=== PATIENT | female | born 1990 | race Two or more races ===

== ENCOUNTER 2016-12-17 10:55 | Observation (INO) | payer OTHER ==
[~2016-12-17] VITALS: Ht 160 cm; Wt 74.8 kg
[2016-12-17 11:17] VITALS: BP 108/72
[2016-12-18] MEDS ORDERED: PREN-546 PO (12:07)
[2016-12-18] MEDS ORDERED: FERR-252 PO (12:07)
== END 2016-12-17 16:10 | disposition home or self-care (01) ==
LOC: EDBD 10:55 → MLD 10:55
PROVIDERS: ADMIT Obstetrics & Gynecology; ATTEND Obstetrics & Gynecology
DX: O36.8130 Decreased fetal movements, third trimester, not applicable or unspecified (principal); Z3A.38 38 weeks gestation of pregnancy
CPT/HCPCS: 76819; G0378; Q0092

== ENCOUNTER 2016-12-18 10:50 | Inpatient (IN) | payer OTHER ==
[~2016-12-18] VITALS: Ht 160 cm; Wt 74.8 kg
[2016-12-18 11:30] VITALS: BP 128/80
[2016-12-18] MEDS ORDERED: LACTATED RINGERS 1,000 ML IV SCH (11:40)
[2016-12-18] MEDS ORDERED: OXYTOCIN 20 UNITS in LACTATED RINGERS 1,000 ML IV SCH (11:40)
[2016-12-18] MEDS ORDERED: PROMETHAZINE 25 MG/ML VIAL IVP PRN (11:40)
[2016-12-18] MEDS ORDERED: CARBOPROST 250 MCG/ML AMP IM PRN (11:40)
[2016-12-18] MEDS ORDERED: LIDOCAINE 1% 500 MG/50 ML VIAL INJ SCH (11:40)
[2016-12-18] MEDS ORDERED: IBUPROFEN 800 MG TAB PO PRN (11:40)
[2016-12-18] MEDS ORDERED: NALBUPHINE 10 MG/ML AMP IVP PRN (11:40)
[2016-12-18] MEDS ORDERED: METHYLERGONOVINE 0.2 MG/ML AMP IM PRN ×2 (11:40→14:55)
[2016-12-18] MEDS ORDERED: OXYTOCIN 10 UNITS/ML VIAL IM SCH (11:40)
[2016-12-18] MEDS ORDERED: PREN-546 PO (12:07)
[2016-12-18] MEDS ORDERED: FERR-252 PO (12:07)
[2016-12-18] MEDS: LACTATED RINGERS 1,000 ML IV SCH ×2 (12:08→12:28)
[2016-12-18 12:32] LABS: BASOPHILS # (AUTO) 0.1 K/uL (0.00-0.22); BASOPHILS % (AUTO) 1.4 % (0.0-2.0); EOSINOPHILS % (AUTO) 0.5 % (0.0-4.0); HEMATOCRIT 32.8 % (36-48); HEMOGLOBIN 10.8 g/dL (12.0-16.0); LYMPHOCYTES # (AUTO) 2.4 K/uL (2.5-16.5); LYMPHOCYTES % (AUTO) 24.2 % (20.5-51.1); MEAN CORPUSCULAR HEMOGLOBIN 32 pg (27-31); MEAN CORPUSCULAR HGB CONC 33 g/dL (33-37); MEAN CORPUSCULAR VOLUME 97 fL (80-94); MONOCYTES # (AUTO) 0.5 K/uL (0.8-1.0); MONOCYTES % (AUTO) 5.4 % (1.7-9.3); NEUTROPHILS # (AUTO) 6.9 K/uL (1.8-7.7); NEUTROPHILS % (AUTO) 68.5 % (42.2-75.2); PLATELET COUNT (AUTO) 189 K/uL (140-450); RED CELL DISTRIBUTION WIDTH 13.6 % (11.6-13.7); WHITE BLOOD COUNT (AUTO) 9.9 K/uL (4.8-10.8)
[2016-12-18] MEDS ORDERED: LIDOCAINE 1% 0 ML ONE (12:42)
[2016-12-18] MEDS ORDERED: OXYTOCIN 10 UNITS/ML VIAL ONE (12:42)
[2016-12-18 13:17] LABS: APPEARANCE,URINE CLEAR (CLEAR); BILIRUBIN,URINE NEGATIVE (NEGATIVE); BLOOD, URINE NEGATIVE (NEGATIVE); COLOR,URINE YELLOW (YELLOW); LEUKOCYTE ESTERASE ,URINE TRACE (NEGATIVE); NITRITE, URINE NEGATIVE (NEGATIVE); PH,URINE 6.5 (5.0-9.0); UGLUCOSE NEGATIVE (NEGATIVE)
[2016-12-18] MEDS ORDERED: OXYTOCIN 20 UNITS/LR PREMIX 1,000 ML IV ONE (13:18)
[2016-12-18 13:27] LABS: RBC,URINE 0-5 (RARE) /HPF (0-5)
[2016-12-18] MEDS ORDERED: BENZOCAINE/MENTHOL 20%-0.5% 60 GM CAN TP PRN (14:55)
[2016-12-18] MEDS ORDERED: HYDROcodone/APAP 5/325 MG 1 TAB TAB PO PRN (14:55)
[2016-12-18] MEDS ORDERED: oxyCODONE/APAP 5/325 MG 1 TAB TAB PO PRN (14:55)
[2016-12-18] MEDS ORDERED: OXYTOCIN 10 UNITS/ML VIAL IM PRN (14:55)
[2016-12-18] MEDS ORDERED: MEASLES, MUMPS, AND RUBELLA 1 VIAL SQVAC PRN (14:55)
[2016-12-18] MEDS: IBUPROFEN 800 MG TAB PO PRN (20:43)
[2016-12-18] MEDS ORDERED: INFLUENZA VIRUS VACCINE QUAD 0.5 ML SYR IMVAC ONE (20:44)
[2016-12-18] MEDS ORDERED: TEMAZEPAM 15 MG CAP PO PRN (21:00)
[2016-12-18] MEDS ORDERED: DOCUSATE SOD/SENNA 50/8.6 MG 1 TAB PO SCH (21:00)
[2016-12-19] MEDS ORDERED: INFLUENZA VIRUS VACCINE QUAD 0.5 ML SYR IMVAC SCH (06:00)
[2016-12-19 06:22] LABS: HEMATOCRIT 32.4 % (36-48); HEMOGLOBIN 10.5 g/dL (12.0-16.0)
--- NOTE | 2016-12-19 09:06 | NUR ---
PATIENT HAS BEEN SCREENED AND CATEGORIZED LOW NUTRITION RISK. PATIENT WILL BE SEEN WITHIN 7 DAYS OF ADMISSION. 12/24/[address]
[2016-12-19] MEDS: IBUPROFEN 800 MG TAB PO PRN (09:31)
[2016-12-20] MEDS ORDERED: IBUP-2213 PO (09:45)
== END 2016-12-20 10:40 | disposition home or self-care (01) | DRG 560 ==
LOC: OBSVTOIN 10:50 → MFCC 10:50
PROVIDERS: ADMIT Obstetrics & Gynecology; ATTEND Obstetrics & Gynecology
PROC: 10E0XZZ Delivery of Products of Conception, External Approach (ICD-10-PCS; principal; 2016-12-18)
PROC: 3E0234Z Introduction of Serum, Toxoid and Vaccine into Muscle, Percutaneous Approach (ICD-10-PCS; 2016-12-18)
PROC: 3E0234Z Introduction of Serum, Toxoid and Vaccine into Muscle, Percutaneous Approach (ICD-10-PCS; 2016-12-18)
DX: O80 Encounter for full-term uncomplicated delivery (principal); Z23 Encounter for immunization; Z37.0 Single live birth; Z3A.38 38 weeks gestation of pregnancy
CPT/HCPCS: 36415; 51702; 59409; 81001; 85018; 85025; 86592; 86886; 86900; 86901; 87086; 90658; 90715; J2001; J2590; J7120